=== PATIENT | female | born 1975 | race Caucasian/White ===

== ENCOUNTER 2016-12-16 15:11 | Emergency (ER) | payer OTHER ==
[2016-12-16 15:15] VITALS: BP 119/72; PULSE 68; RESP 20; TEMP 98.2
--- NOTE | 2016-12-16 15:30 | ED ---
General Adult HPI - General Chief complaint: Headache Stated complaint: Cough/Headache Time Seen by Provider: 12/16/16 15:18 Source: patient Mode of arrival: ambulatory Limitations: no limitations - History of Present Illness Initial comments: This 41-year-old female presents with a complaint of coughing. She states that she's been coughing up greenish production for the last 4 days. She has had occasional shortness of breath but no chest pain. She's had some moderate nasal congestion as well. She does not utilize tobacco. She denies any fevers. She has tried some DayQuil, NyQuil, and vertex without any relief. She does complain of occasional headache which is worse with coughing. No other complaints or modifying factors. She denies any possibility of . - Related Data Previous Rx's Medication Instructions Recorded Naproxen [Naprosyn] 500 mg PO Q12HR #20 tab 09/18/15 Albuterol Sulfate [Proair Hfa] 1 - 2 puff INHALATION Q6HR PRN #1 12/16/16 inhaler Azithromycin [Zithromax Z-pack] 0 mg PO DIRECTED #6 tab 12/16/16 Allergies Allergy/AdvReac Type Severity Reaction Status Date / Time No Known Allergies Allergy Verified 12/16/16 15:15 Review of Systems ROS Statement: Those systems with pertinent positive or pertinent negative responses have been documented in the HPI. ROS Other: All systems not noted in ROS Statement are negative. Past Medical History Past Medical History: No Reported History History of Any Multi-Drug Resistant Organisms: None Reported Past Surgical History: Tubal Ligation Past Psychological History: No Psychological Hx Reported Smoking Status: Never smoker Past Alcohol Use History: None Reported Past Drug Use History: None Reported General Exam - General Exam Comments Initial Comments: GENERAL: The patient is well nourished and well hydrated. VITAL SIGNS: Heart rate, blood pressure, respiratory rate reviewed as recorded in nurse's notes. EYES: Pupils are round and reactive. Extraocular movements are intact. No conjunctival / lid redness or swelling. ENT: No external evidence of injury, swelling, or ecchymosis. Airway is patent. Throat is clear. NECK: Nontender. No swelling or evidence of injury. No subcutaneous emphysema. Trachea is midline. No thyroid mass. HEART: Regular rate and rhythm. Good peripheral pulses. LUNGS/CHEST: Breath sounds clear and equal bilaterally. No rales, rhonchi, or wheezes. No ecchymosis, subcutaneous emphysema, or tenderness. ABDOMEN: Abdomen soft without tenderness. No palpable masses or organomegaly. No peritoneal signs. No abdominal wall swelling or ecchymosis. EXTREMITIES: No extremity tenderness. Normal muscle tone and function. No thoracolumbar tenderness. NEUROLOGIC: Sensation is grossly intact. Cranial nerve exam reveals face is symmetrical, tongue is midline, speech is clear. SKIN: No abrasions or ecchymosis is noted. No induration or masses noted. PSYCHIATRIC: Alert and oriented. Appropriate behavior and judgment. Limitations: no limitations Course Vital Signs 12/16/16 15:13 Temperature 98.2 F Pulse Rate 68 Respiratory 20 Rate Blood Pressure 119/72 O2 Sat by Pulse 99 Oximetry Medical Decision Making - Medical Decision Making The patient was seen and examined. It is felt as though her symptom complex is consistent with bronchitis. She also has a history of asthma. She'll be treated with some antibiotics as well as an inhaler. She understands and agrees with findings disposition and leaves in no distress. Disposition Clinical Impression: Bronchitis Disposition: HOME SELF-CARE Condition: Good Instructions: Acute Bronchitis (ED) Additional Instructions: Please use Tylenol and/or Motrin if needed for any pain or fever. Prescriptions: Albuterol Sulfate [Proair Hfa] 1 - 2 puff INHALATION Q6HR PRN #1 inhaler PRN Reason: Shortness Of Breath Or Wheezing Azithromycin [Zithromax Z-pack] 0 mg PO DIRECTED #6 tab Referrals: Betzy Viveros MD [Primary Care Provider] - 1-2 days Time of Disposition: 15:29
== END 2016-12-16 15:37 | disposition home or self-care (01) ==
LOC: EC 15:11
DX: J40 Bronchitis, not specified as acute or chronic (principal)
CPT/HCPCS: 99283

== ENCOUNTER 2017-09-23 22:56 | Emergency (ER) | payer OTHER ==
[2017-09-23 23:09] VITALS: RESP 18
[2017-09-23] MEDS ORDERED: diphenhydrAMINE 50 MG/ML 1 ML VIAL IVP STA (23:39)
[2017-09-23] MEDS ORDERED: SODIUM CHLORIDE 0.9% 1,000 ML IV ONE (23:39)
[2017-09-23] MEDS ORDERED: METOCLOPRAMIDE 5 MG/ML 2 ML VIAL IVP STA (23:39)
[2017-09-23] MEDS ORDERED: KETOROLAC 30 MG/ML 1 ML VIAL IVP STA (23:39)
--- NOTE | 2017-09-23 23:41 | ED ---
Headache HPI - General Chief Complaint: Headache Stated Complaint: Headache Time Seen by Provider: 09/23/17 23:15 Mode of arrival: ambulatory Limitations: no limitations - History of Present Illness MD Complaint: headache Onset/Timin -: days(s) Onset Description: gradual Location: right, left, temporal Severity scale (1-10): 10 Quality: aching, throbbing Consistency: constant Improves With: nothing Worsens With: none Treatments Prior to Arrival: none - Related Data Home Medications Medication Instructions Recorded Confirmed Ibuprofen 800 mg PO Q6H PRN 09/23/17 09/23/17 Previous Rx's Medication Instructions Recorded Ibuprofen [Motrin] 600 mg PO Q8HR PRN #20 tab 09/24/17 Metoclopramide [Reglan] 10 mg PO TID PRN #12 tab 09/24/17 Allergies Allergy/AdvReac Type Severity Reaction Status Date / Time No Known Allergies Allergy Verified 09/23/17 23:16 Review of Systems ROS Statement: Those systems with pertinent positive or pertinent negative responses have been documented in the HPI. ROS Other: All systems not noted in ROS Statement are negative. Past Medical History Past Medical History: No Reported History History of Any Multi-Drug Resistant Organisms: None Reported Past Surgical History: Tubal Ligation Past Psychological History: No Psychological Hx Reported Smoking Status: Never smoker Past Alcohol Use History: None Reported Past Drug Use History: None Reported General Exam Limitations: no limitations General appearance: alert, in no apparent distress Head exam: Present: atraumatic, normocephalic Eye exam: Present: normal appearance, PERRL, EOMI. Absent: scleral icterus, conjunctival injection, nystagmus ENT exam: Present: mucous membranes dry, TM's normal bilaterally, normal external ear exam Neck exam: Present: normal inspection, full ROM. Absent: tenderness, meningismus Extremities exam: Present: normal inspection, normal capillary refill. Absent: pedal edema, calf tenderness Back exam: Present: normal inspection, full ROM. Absent: vertebral tenderness Neurological exam: Present: alert, oriented X3, CN II-XII intact. Absent: motor sensory deficit Skin exam: Present: warm, dry, intact, normal color. Absent: rash Course Vital Signs 09/23/17 23:05 Temperature 98.4 F Pulse Rate 53 L Respiratory 18 Rate Blood Pressure 134/91 O2 Sat by Pulse 100 Oximetry Disposition Clinical Impression: Headache Disposition: HOME SELF-CARE Condition: Good Instructions: Acute Headache (ED) Prescriptions: Ibuprofen [Motrin] 600 mg PO Q8HR PRN #20 tab PRN Reason: Pain Metoclopramide [Reglan] 10 mg PO TID PRN #12 tab PRN Reason: Nausea Is patient prescribed a controlled substance at d/c from ED?: No Referrals: Tiburcio Spencer MD [Primary Care Provider] - 1-2 days
--- NOTE | 2017-09-24 00:08 | CT ---
EXAMINATION TYPE: CT brain wo con DATE OF EXAM: 09/24/2017 COMPARISON: NONE HISTORY: headache intermittent for [address] DLP: 1121 mGycm. Automated Exposure Control for Dose Reduction was Utilized. TECHNIQUE: CT scan of the head is performed without contrast. FINDINGS: Ventricles and sulci appear normal. There is no mass effect nor midline shift. There is n o sign of intracranial hemorrhage. Calvarium appears normal. Impression normal head CT scan.
[2017-09-24 01:35] VITALS: BP 127/69; PULSE 65; TEMP 97.3
== END 2017-09-24 01:35 | disposition home or self-care (01) ==
LOC: EC 22:56
DX: R51 Headache (principal)
CPT/HCPCS: 99284; 96374; 96375 ×2; 96361; 70450; J1200; J2765; J1885

== ENCOUNTER 2018-07-01 12:57 | Emergency (ER) | payer OTHER ==
[2018-07-01 13:03] VITALS: TEMP 98.3
[2018-07-01] MEDS ORDERED: AZITHROMYCIN 500 MG TAB PO STA (13:24)
[2018-07-01] MEDS ORDERED: cefTRIAXone 250 MG VIAL IM STA (13:24)
[2018-07-01] MEDS ORDERED: IBUPROFEN 600 MG TAB PO STA (13:24)
[2018-07-01] MEDS ORDERED: CYCLOBENZAPRINE 10 MG TAB PO STA (13:24)
[2018-07-01 13:48] LABS: Appearance,Urine Clear (Clear); Bilirubin,Urine Negative (Negative); Blood,Urine Negative (Negative); Color,Urine Light Yellow; Glucose,Urine (UA) Negative (Negative); Ketones,Urine Negative (Negative); Leukocyte Esterase,Urine Negative (Negative); Nitrite,Urine Negative (Negative); PH, Urine 6.5 (5.0-8.0); Protein,Urine Negative (Negative); Specific Gravity,Urine 1.003 (1.001-1.035); Urobilinogen,Urine <2.0 mg/dL (<2.0)
[2018-07-01 14:05] VITALS: RESP 16
--- NOTE | 2018-07-01 14:43 | ED ---
General Adult HPI - General Chief complaint: Abdominal Pain Stated complaint: vaginal discharge Time Seen by Provider: 07/01/18 13:07 Source: patient, RN notes reviewed Mode of arrival: ambulatory Limitations: no limitations - History of Present Illness Initial comments: 42-year-old female without any significant past medical history besides tubal ligation presents to the emergency department for multiple complaints. Patient complains of right-sided back spasms. Patient states this started a few days ago. Patient states she recently started working 80 hours at work per week and has been lifting heavy crates of pop. She thinks this is related. She denies any bladder or bowel changes, saddle anesthesia. She denies any weakness in the legs or pain radiating into the legs. She denies any midline tenderness. Patient states she is more concerned about vaginal discharge. She states this has been ongoing for about 2 weeks. She states it is clear and does not have an odor. Patient does admit to sexual activity with new partners. She is concerned about sexually transmitted diseases. She denies any pelvic pain whatsoever.Patient has no other complaints at this time including shortness of breath, chest pain, abdominal pain, nausea or vomiting, headache, or visual changes. - Related Data Home Medications Medication Instructions Recorded Confirmed Acetaminophen Tab [Tylenol Tab] 650 mg PO Q4H PRN 07/01/18 07/01/18 Previous Rx's Medication Instructions Recorded Cyclobenzaprine [Flexeril] 5 mg PO TID #12 tablet 07/01/18 Doxycycline [Vibramycin] 100 mg PO BID 14 Days capsule 07/01/18 Ibuprofen [Motrin] 600 mg PO Q8HR PRN #20 tab 07/01/18 Allergies Allergy/AdvReac Type Severity Reaction Status Date / Time No Known Allergies Allergy Verified 07/01/18 13:28 Review of Systems ROS Statement: Those systems with pertinent positive or pertinent negative responses have been documented in the HPI. ROS Other: All systems not noted in ROS Statement are negative. Past Medical History Past Medical History: No Reported History History of Any Multi-Drug Resistant Organisms: None Reported Past Surgical History: Tubal Ligation Past Psychological History: No Psychological Hx Reported Smoking Status: Never smoker Past Alcohol Use History: None Reported Past Drug Use History: None Reported General Exam Limitations: no limitations General appearance: alert, in no apparent distress Head exam: Present: atraumatic, normocephalic, normal inspection Eye exam: Present: normal appearance, PERRL, EOMI. Absent: scleral icterus, conjunctival injection, periorbital swelling ENT exam: Present: normal exam, mucous membranes moist Neck exam: Present: normal inspection, full ROM. Absent: tenderness, meningismus, lymphadenopathy Respiratory exam: Present: normal lung sounds bilaterally. Absent: respiratory distress, wheezes, rales, rhonchi, stridor Cardiovascular Exam: Present: regular rate, normal rhythm, normal heart sounds. Absent: systolic murmur, diastolic murmur, rubs, gallop, clicks GI/Abdominal exam: Present: soft, normal bowel sounds. Absent: distended, tenderness, guarding, rebound, rigid External exam: Present: normal external exam. Absent: erythema, swelling, lesions, lacerations, ecchymosis Speculum exam: Present: normal speculum exam. Absent: erythema, vaginal discharge (No significant vaginal discharge noted), cervical discharge, vaginal bleeding, foreign body By manual exam: Present: normal by manual exam. Absent: cervical motion tenderness, adnexal tenderness, adnexal mass, uterine enlargement, uterine tenderness Back exam: Present: paraspinal tenderness (Right-sided paraspinal tenderness. N o other abnormalities noted.). Absent: vertebral tenderness Neurological exam: Present: alert, oriented X3, CN II-XII intact Psychiatric exam: Present: normal affect, normal mood Course Vital Signs 07/01/18 07/01/18 13:01 14:05 Temperature 98.3 F Pulse Rate 79 75 Respiratory 18 16 Rate Blood Pressure 121/80 125/88 O2 Sat by Pulse 100 98 Oximetry Medical Decision Making - Medical Decision Making 42-year-old female presents to the emergency determine for chief complaint of vaginal discharge. Patient states this has been ongoing for the past 2 weeks. She is concerned for sexually transmitted diseases and does have new sexual partners. Patient denies any dysuria. Denies any pelvic pain whatsoever. Pelvic exam was normal. Discussed empiric treatment which patient would like to have. Patient will also be given doxycycline. Educated on to get on this however patient already has a tubal ligation. Patient also complaining of right-sided back spasms after heavy lifting at work. Patient given Motrin and Flexeril, feeling much better. Patient will follow up with primary care in 1-2 days. She will return here she has any worsening symptoms. - Lab Data Lab Results 07/01/18 07/01/18 07/01/18 Range/Units 13:32 13:32 13:55 Urine Color Light Yellow Urine Appearance Clear (Clear) Urine pH 6.5 (5.0-8.0) Ur Specific Corder 1.003 (1.001-1.035) Urine Protein Negative (Negative) Urine Glucose (UA) Negative (Negative) Urine Ketones Negative (Negative) Urine Blood Negative (Negative) Urine Nitrite Negative (Negative) Urine Bilirubin Negative (Negative) Urine Urobilinogen <2.0 (<2.0) mg/dL Ur Leukocyte Esterase Negative (Negative) Urine HCG, Qual Not Detected (Not Detectd) Trichomonas Ag (Rapid) Negative (Negative) Disposition Clinical Impression: Vaginal discharge Disposition: HOME SELF-CARE Condition: Good Instructions (If sedation given, give patient instructions): Vaginal Discharge (ED), Low Back Strain (ED) Additional Instructions: Please follow up with primary care in 1-2 days. Take antibiotic as directed. Please take Motrin and Flexeril for back pain. Do not drive or operate machinery while taking Flexeril. Return to the emergency department if you have any worsening symptoms. Prescriptions: Cyclobenzaprine [Flexeril] 5 mg PO TID #12 tablet Ibuprofen [Motrin] 600 mg PO Q8HR PRN #20 tab PRN Reason: Pain Doxycycline [Vibramycin] 100 mg PO BID 14 Days capsule Is patient prescribed a controlled substance at d/c from ED?: No Referrals: Tiburcio Spencer MD [Primary Care Provider] - 1-2 days Time of Disposition: 14:41
[2018-07-01 15:03] VITALS: BP 126/80; PULSE 72
[2018-07-02 13:38] LABS: C. trachomatis,PCR Negative (Neg,Equiv); Chlamydia trachomatis Source Vagina; N. gonorrhoeae,PCR Negative (Neg,Equiv); Neisseria Source Vagina
== END 2018-07-01 15:03 | disposition home or self-care (01) ==
LOC: EC 12:57
DX: N89.8 Other specified noninflammatory disorders of vagina (principal); R25.2 Cramp and spasm; R10.9 Unspecified abdominal pain; Z98.51 Tubal ligation status
CPT/HCPCS: 81003; 81025; 87808; 87491; 87591; 99284; 96372; J0696

== ENCOUNTER 2018-09-01 16:04 | Emergency (ER) | payer OTHER ==
[2018-09-01] MEDS ORDERED: IBUPROFEN 600 MG TAB PO STA (18:12)
[2018-09-01] MEDS ORDERED: guaiFENesin-DM 600/30MG 1 EACH TAB.ER.12H PO STA (18:12)
[2018-09-01] MEDS ORDERED: ACETAMINOPHEN TAB 500 MG TAB PO STA (18:12)
--- NOTE | 2018-09-01 18:17 | ED ---
URI HPI - General Chief Complaint: Upper Respiratory Infection Stated Complaint: Congestion Time Seen by Provider: 09/01/18 17:57 Source: patient Mode of arrival: ambulatory Limitations: no limitations - History of Present Illness Initial Comments: 42-year-old female patient presents to the emergency department today for a 2 day history of cough, nasal congestion, sore throat, and headache. Patient states her children are sick with similar symptoms. States that she is coughing up clear to yellow sputum. Denies any known fever. States she did take DayQuil for her symptoms which did give mild relief. She denies any shortness of breath or wheezing. Denies any nausea, vomiting, or diarrhea. Denies any history of smoking. Denies any chronic medical conditions. Patient denies any recent rash, chest pain, abdominal pain, back pain, numbness, tingling, dizziness, weakness, hematuria, dysuria, urinary urgency, urinary frequency, headache, vis ual changes, or any other complaints. - Related Data Previous Rx's Medication Instructions Recorded guaiFENesin-DM 600/30MG [Mucinex 1 each PO Q12HR #10 tab.er.12h 09/01/18 Dm] Allergies Allergy/AdvReac Type Severity Reaction Status Date / Time No Known Allergies Allergy Verified 09/01/18 18:46 Review of Systems ROS Statement: Those systems with pertinent positive or pertinent negative responses have been documented in the HPI. ROS Other: All systems not noted in ROS Statement are negative. Past Medical History Past Medical History: No Reported History History of Any Multi-Drug Resistant Organisms: None Reported Past Surgical History: Tubal Ligation Past Psychological History: No Psychological Hx Reported Smoking Status: Never smoker Past Alcohol Use History: None Reported Past Drug Use History: None Reported General Exam Limitations: no limitations General appearance: alert, in no apparent distress, other (Physical well- developed, well-nourished adult female patient in no acute distress. Vital signs upon presentation are temperature 98.5F, pulse 63, respirations 16, blood pressure 120/80, pulse ox 100% on room air.) Eye exam: Present: normal appearance, PERRL, EOMI. Absent: scleral icterus, conjunctival injection, periorbital swelling ENT exam: Present: mucous membranes moist, TM's normal bilaterally. Absent: n ormal exam, normal oropharynx (Pharyngeal erythema) Respiratory exam: Present: normal lung sounds bilaterally. Absent: respiratory distress, wheezes, rales, rhonchi, stridor Cardiovascular Exam: Present: regular rate, normal rhythm, normal heart sounds. Absent: systolic murmur, diastolic murmur, rubs, gallop, clicks GI/Abdominal exam: Present: soft, normal bowel sounds. Absent: distended, tenderness, guarding, rebound, rigid Neurological exam: Present: alert, oriented X3, CN II-XII intact Psychiatric exam: Present: normal affect, normal mood Skin exam: Present: warm, dry, intact, normal color. Absent: rash Course Vital Signs 09/01/18 17:22 Temperature 98.5 F Pulse Rate 63 Respiratory 16 Rate Blood Pressure 120/80 O2 Sat by Pulse 100 Oximetry Medical Decision Making - Medical Decision Making 42-year-old female patient presents to the emergency department today for evaluation of cough, nasal congestion, body aches, and headache. Physical examination reveals clear equal lung sounds. Pharyngeal erythema. Chest x-ray showed no acute cardio pulmonary process. Patient symptoms are consistent with acute viral upper respiratory infection. She is instructed to rest, increase fluids, take Mucinex DM as directed. She is instructed to follow-up with her primary care physician for recheck in 1-2 days. Return parameters were discussed in detail. She verbalizes understanding and agrees with this plan. - Radiology Data Radiology results: report reviewed, image reviewed Two-view x-ray of the chest is obtained. Report was reviewed in its entirety. Impression by Dr. Hager shows normal chest with no change. Disposition Clinical Impression: Viral upper respiratory infection Disposition: HOME SELF-CARE Condition: Good Instructions (If sedation given, give patient instructions): Upper Respiratory Infection (ED) Additional Instructions: Rest. Increase fluids. Use over the counter decongestants and nasal sprays for symptom relief. Follow up with your primary care physician in 1-2 days for a recheck. Return here immediately for any new, worsening, or concerning symptoms. Prescriptions: guaiFENesin-DM 600/30MG [Mucinex Dm] 1 each PO Q12HR #10 tab.er.12h Is patient prescribed a controlled substance at d/c from ED?: No Referrals: Tiburcio Spencer MD [Primary Care Provider] - 1-2 days Time of Disposition: 18:45
--- NOTE | 2018-09-01 18:33 | XR ---
EXAMINATION TYPE: XR chest 2V DATE OF EXAM: 09/01/2018 COMPARISON: 09/18/2015 HISTORY: Cough TECHNIQUE: Frontal and lateral views of the chest are obtained. FINDINGS: Heart and mediastinum are normal. Lungs are clear. Diaphragm is normal. Bony thorax is int act. IMPRESSION: Normal chest. No change.
[2018-09-01 19:32] VITALS: BP 116/82; PULSE 64; RESP 14; TEMP 97.6
== END 2018-09-01 19:48 | disposition home or self-care (01) ==
LOC: EC 16:04
DX: J06.9 Acute upper respiratory infection, unspecified (principal)
CPT/HCPCS: 71046; 99283

== ENCOUNTER 2019-04-16 21:23 | Emergency (ER) | payer OTHER ==
[2019-04-16 21:31] VITALS: BP 117/79; PULSE 82; RESP 16; TEMP 98.5
[2019-04-16] MEDS ORDERED: diphenhydrAMINE 25 MG CAP PO STA (21:40)
[2019-04-16] MEDS ORDERED: FAMOTIDINE 20 MG TAB PO STA (21:40)
[2019-04-16] MEDS ORDERED: methylPREDNISolone SOD SUCCI 125 MG/2 ML VIAL IM ONE (21:40)
--- NOTE | 2019-04-16 21:46 | ED ---
Skin/Abscess/FB HPI - General Chief complaint: Skin/Abscess/Foreign Body Stated complaint: Rash Time Seen by Provider: 04/16/19 21:32 Source: patient Mode of arrival: ambulatory Limitations: no limitations - History of Present Illness Initial comments: 43yo female presenting for possible insect bites/rash. States she has itchy bites all over her body chest abdomen UE b/l. Denies fever, stats she had home checked for bed bugs, states there are none. Patient taking benadryl at home. Patient denies any other associated symptoms or confluent redness. Patient states she did consider scabies, areas are itchy at night. Remainign ROS (-). On arrival patient appears well, no distress. Afebrile. - Related Data Previous Rx's Medication Instructions Recorded guaiFENesin-DM 600/30MG [Mucinex 1 each PO Q12HR #10 tab.er.12h 09/01/18 Dm] Permethrin 5% Cream [Elimite] 1 applic TOPICAL ONCE 1 Days #1 04/16/19 tube Allergies Allergy/AdvReac Type Severity Reaction Status Date / Time tomato Allergy Rash/Hives Verified 04/16/19 21:31 Review of Systems ROS Statement: Those systems with pertinent positive or pertinent negative responses have been documented in the HPI. ROS Other: All systems not noted in ROS Statement are negative. Past Medical History Past Medical History: No Reported History History of Any Multi-Drug Resistant Organisms: None Reported Past Surgical History: Tubal Ligation Past Psychological History: No Psychological Hx Reported Smoking Status: Never smoker Past Alcohol Use History: None Reported Past Drug Use History: None Reported General Exam - General Exam Comments Initial Comments: General: The patient is awake and alert, in no distress, and does not appear acutely ill. Eye: =3 mm pupils are equal, round and reactive to light, extra-ocular movements are intact. No nystagmus. There is normal conjunctiva bilaterally. No signs of icterus. Ears, nose, mouth and throat: There are moist mucous membranes and no oral lesions. Neck: The neck is supple, there is no tenderness or JVD. Cardiovascular: There is a regular rate and rhythm. No murmur, rub or gallop is appreciated. Respiratory: Lungs are clear to auscultation, respirations are non-labored, breath sounds are equal. No wheezes, stridor, rales, or rhonchi. Musculoskeletal: Normal ROM, no tenderness. Strength 5/5. Sensation intact. Pulses equal bilaterally 2+. Neurological: A&O x 3. CN II-XII intact, There are no obvious motor or sensory deficits. Coordination appears grossly intact. Speech is normal. Skin: Skin is warm and dry. Small random breaks in skin slightly red, some excoriated some in linear pattern, no finger or feet involvement. no confluent areas, random distribution present on chest, abdomen ue b/l. Psychiatric: Cooperative, appropriate mood & affect, normal judgment. Limitations: no limitations Course Vital Signs 04/16/19 21:29 Temperature 98.5 F Pulse Rate 82 Respiratory 16 Rate Blood Pressure 117/79 O2 Sat by Pulse 96 Oximetry Medical Decision Making - Medical Decision Making rash consistent with some type of infestation with local excoriation. will attempt scabies treatment, given steroids, pepcid, benadryl for itch relief. does not appears consistent with urticaria. nor viral [place] no other associated symptoms. Patient case discussed with Dr. Ivey and she will be discharged with permetherin 5%,PCP and dermatology f/u> patient agreeable. Disposition Clinical Impression: Rash Disposition: HOME SELF-CARE Condition: Good Instructions (If sedation given, give patient instructions): Scabies (ED), Acute Rash (ED) Additional Instructions: Please use medication as discussed. Please follow-up with family doctor in the next 2 days, follow-up with dermatology. Please return to emergency room if the symptoms increase or worsen or for any other concerns. Prescriptions: Permethrin 5% Cream [Elimite] 1 applic TOPICAL ONCE 1 Days #1 tube Is patient prescribed a controlled substance at d/c from ED?: No Referrals: Tiburcio Spencer MD [Primary Care Provider] - 1-2 days Time of Disposition: 21:46
== END 2019-04-16 22:10 | disposition home or self-care (01) ==
LOC: EC 21:23
DX: R21 Rash and other nonspecific skin eruption (principal); L29.9 Pruritus, unspecified; Z91.018 Allergy to other foods
CPT/HCPCS: 99282; 96372; J2930

== ENCOUNTER 2019-06-25 16:26 | Emergency (ER) | payer OTHER ==
[2019-06-25 16:35] VITALS: TEMP 98.8
[2019-06-25] MEDS ORDERED: SODIUM CHLORIDE 0.9% 500 ML 500 ML IV STA (17:05)
[2019-06-25] MEDS ORDERED: SILVER NITRATE APPLICATOR 1 EACH STICK..EA. TOPICAL STA (17:06)
[2019-06-25 17:29] VITALS: RESP 16
[2019-06-25 17:43] LABS: Basophils % (A) 0 %; Eosinophils # (A) 0.1 k/uL (0-0.7); Eosinophils % (A) 1 %; HCT 39.9 % (34.0-46.0); HGB 13.1 gm/dL (11.4-16.0); Lymphocytes # (A) 1.9 k/uL (1.0-4.8); Lymphocytes % (A) 18 %; MCH 29.6 pg (25.0-35.0); MCHC 32.8 g/dL (31.0-37.0); MCV 90.1 fL (80.0-100.0); Mean Platelet Volume 8.2; Monocytes # (A) 0.7 k/uL (0-1.0); Monocytes % (A) 6 %; Neutrophils # (A) 7.8 k/uL (1.3-7.7); Neutrophils % (A) 73 %; Platelet Count 189 k/uL (150-450); RBC 4.43 m/uL (3.80-5.40); RDW 13.3 % (11.5-15.5); WBC 10.7 k/uL (3.8-10.6)
[2019-06-25 17:52] LABS: Appearance,Urine Turbid (Clear); Bacteria,Urine Rare /hpf; Bilirubin,Urine Negative (Negative); Blood,Urine Moderate (Negative); Color,Urine Yellow; Glucose,Urine (UA) Negative (Negative); Ketones,Urine Negative (Negative); Leukocyte Esterase,Urine Large (Negative); Mucus,Urine Occasional /hpf; Nitrite,Urine Negative (Negative); PH, Urine 5.5 (5.0-8.0); Protein,Urine 1+ (Negative); RBC,Urine 54 /hpf (0-5); Specific Gravity,Urine 1.024 (1.001-1.035); Squamous Epithelial Cell,Urine 13 /hpf (0-4); WBC,Urine >182 /hpf (0-5)
[2019-06-25 17:58] LABS: ALT 15 U/L (4-34); AST 21 U/L (14-36); African American GFR (CKD) >90 (>60 ml/min/1.73 sqM); Albumin 3.7 g/dL (3.5-5.0); Alkaline Phosphatase 85 U/L (38-126); Anion Gap 4 mmol/L; Blood Urea Nitrogen 10 mg/dL (7-17); Calcium 10.2 mg/dL (8.4-10.2); Carbon Dioxide 26 mmol/L (22-30); Chloride 107 mmol/L (98-107); Glucose 87 mg/dL (74-99); Magnesium 2.4 mg/dL (1.6-2.3); Non-African American GFR(CKD) >90 (>60 ml/min/1.73 sqM); Phosphorus 2.9 mg/dL (2.5-4.5); Potassium 3.5 mmol/L (3.5-5.1); Sodium 137 mmol/L (137-145); Total Bilirubin 0.3 mg/dL (0.2-1.3); Total Protein 6.7 g/dL (6.3-8.2)
[2019-06-25 18:02] LABS: INR 0.9 (<1.2); Partial Thromboplastin Time 22.6 sec (22.0-30.0); Prothrombin Time 9.4 sec (9.0-12.0)
[2019-06-25] MEDS ORDERED: cefTRIAXone IN SWFI 1,000 MG/10 ML SYRINGE IVP STA (18:27)
--- NOTE | 2019-06-25 18:27 | ED ---
Female Urogenital HPI - General Chief complaint: ENT Stated complaint: Nose Bleed Time Seen by Provider: 06/25/19 16:42 Source: patient, RN notes reviewed, old records reviewed Mode of arrival: ambulatory Limitations: no limitations - History of Present Illness Initial comments: This is a 43-year-old female ABHINAV she has multiple complaints today. Patient complaining of initially episode of vaginal bleeding although it is about time for her normal menses but then developed 3 bloody noses today by place and time, were improved with holding pressure although returned, patient did feel lightheaded and dizzy during these events and has been having some vaginal bleeding as well. Denies any bleeding issue prior. No significant medical history takes no medications denying drug or alcohol abuse. Patient has no active nose bleeding currently, denying abdominal pain. Denies possibility of . MD Complaint: vaginal bleeding -: hour(s) Location: suprapubic Radiation: non-radiating Severity: moderate Severity scale (1-10): 4 Quality: other (no pain) Improves with: none Worsens with: none Patient : No Associated Symptoms: denies other symptoms - Related Data Sexually active: Yes Previous Rx's Medication Instructions Recorded guaiFENesin-DM 600/30MG [Mucinex 1 each PO Q12HR #10 tab.er.12h 09/01/18 Dm] Permethrin 5% Cream [Elimite] 1 applic TOPICAL ONCE 1 Days #1 04/16/19 tube Allergies Allergy/AdvReac Type Severity Reaction Status Date / Time tomato Allergy Rash/Hives Verified 06/25/19 16:29 Review of Systems ROS Statement: Those systems with pertinent positive or pertinent negative responses have been documented in the HPI. ROS Other: All systems not noted in ROS Statement are negative. Past Medical History Past Medical History: No Reported History History of Any Multi-Drug Resistant Organisms: None Reported Past Surgical History: Tubal Ligation Past Psychological History: No Psychological Hx Reported Smoking Status: Never smoker Past Alcohol Use History: None Reported Past Drug Use History: None Reported General Exam Limitations: no limitations General appearance: alert, in no apparent distress Head exam: Present: atraumatic, normocephalic, normal inspection Eye exam: Present: normal appearance, PERRL, EOMI. Absent: scleral icterus, conjunctival injection, periorbital swelling ENT exam: Present: normal exam, mucous membranes moist, other (Patient does have bleeding from right naris that appears to have stopped) Neck exam: Present: normal inspection. Absent: tenderness, meningismus, lymphadenopathy Respiratory exam: Present: normal lung sounds bilaterally. Absent: respiratory distress, wheezes, rales, rhonchi, stridor Cardiovascular Exam: Present: regular rate, normal rhythm, normal heart sounds. Absent: systolic murmur, diastolic murmur, rubs, gallop, clicks GI/Abdominal exam: Present: soft, normal bowel sounds. Absent: distended, tenderness, guarding, rebound, rigid Extremities exam: Present: normal inspection, full ROM, normal capillary refill. Absent: tenderness, pedal edema, joint swelling, calf tenderness Back exam: Present: normal inspection Neurological exam: Present: alert, oriented X3, CN II-XII intact Psychiatric exam: Present: normal affect, normal mood Skin exam: Present: warm, dry, intact, normal color. Absent: rash Course Vital Signs 06/25/19 06/25/19 16:29 17:27 Temperature 98.8 F Pulse Rate 93 83 Respiratory 18 16 Rate Blood Pressure 123/81 130/81 O2 Sat by Pulse 98 99 Oximetry - Reevaluation(s) Reevaluation #1: 06/25/19 18:25 Medical records reviewed Reevaluation #2: 06/25/19 18:25 Asymptomatic no symptoms of vaginal bleeding or nasal bleeding currently patient informed results Procedures - Procedures Initial comment: Right epistaxis Bleeding had stopped, cauterized with silver nitrate No complication Medical Decision Making - Medical Decision Making 43 female to the ED co R nare epistaxis, resolved, and vaginal bleeding labs VS are normal, VS stable, patient can be discharged home. - Lab Data Result diagrams: 06/25/19 17:20 06/25/19 17:20 Lab Results 06/25/19 06/25/19 06/25/19 Range/Units 17:20 17:20 17:20 WBC 10.7 H (3.8-10.6) k/uL RBC 4.43 (3.80-5.40) m/uL Hgb 13.1 (11.4-16.0) gm/dL Hct 39.9 (34.0-46.0) % MCV 90.1 (80.0-100.0) fL MCH 29.6 (25.0-35.0) pg MCHC 32.8 (31.0-37.0) g/dL RDW 13.3 (11.5-15.5) % Plt Count 189 (150-450) k/uL Neutrophils % 73 % Lymphocytes % 18 % Monocytes % 6 % Eosinophils % 1 % Basophils % 0 % Neutrophils # 7.8 H (1.3-7.7) k/uL Lymphocytes # 1.9 (1.0-4.8) k/uL Monocytes # 0.7 (0-1.0) k/uL Eosinophils # 0.1 (0-0.7) k/uL Basophils # 0.0 (0-0.2) k/uL PT 9.4 (9.0-12.0) sec INR 0.9 (<1.2) APTT 22.6 (22.0-30.0) sec Sodium (137-145) mmol/L Potassium (3.5-5.1) mmol/L Chloride (98-107) mmol/L Carbon Dioxide (22-30) mmol/L Anion Gap mmol/L BUN (7-17) mg/dL Creatinine (0.52-1.04) mg/dL Est GFR (CKD-EPI)AfAm (>60 ml/min/1.73 sqM) Est GFR (CKD-EPI)NonAf (>60 ml/min/1.73 sqM) Glucose (74-99) mg/dL Calcium (8.4-10.2) mg/dL Phosphorus (2.5-4.5) mg/dL Magnesium (1.6-2.3) mg/dL Total Bilirubin (0.2-1.3) mg/dL AST (14-36) U/L ALT (4-34) U/L Alkaline Phosphatase (38-126) U/L Total Protein (6.3-8.2) g/dL Albumin (3.5-5.0) g/dL Urine Color Yellow Urine Appearance Turbid H (Clear) Urine pH 5.5 (5.0-8.0) Ur Specific [place] 1.024 (1.001-1.035) Urine Protein 1+ H (Negative) Urine Glucose (UA) Negative (Negative) Urine Ketones Negative (Negative) Urine Blood Moderate H (Negative) Urine Nitrite Negative (Negative) Urine Bilirubin Negative (Negative) Urine Urobilinogen 2.0 (<2.0) mg/dL Ur Leukocyte Esterase Large H (Negative) Urine RBC 54 H (0-5) /hpf Urine WBC >182 H (0-5) /hpf Urine WBC Clumps Occasional H (None) /hpf Ur Squamous Epith Cells 13 H (0-4) /hpf Urine Bacteria Rare H (None) /hpf Urine Mucus Occasional H (None) /hpf Urine HCG, Qual (Not Detectd) 06/25/19 06/25/19 Range/Units 17:20 17:20 WBC (3.8-10.6) k/uL RBC (3.80-5.40) m/uL Hgb (11.4-16.0) gm/dL Hct (34.0-46.0) % MCV (80.0-100.0) fL MCH (25.0-35.0) pg MCHC (31.0-37.0) g/dL RDW (11.5-15.5) % Plt Count (150-450) k/uL Neutrophils % % Lymphocytes % % Monocytes % % Eosinophils % % Basophils % % Neutrophils # (1.3-7.7) k/uL Lymphocytes # (1.0-4.8) k/uL Monocytes # (0-1.0) k/uL Eosinophils # (0-0.7) k/uL Basophils # (0-0.2) k/uL PT (9.0-12.0) sec INR (<1.2) APTT (22.0-30.0) sec Sodium 137 (137-145) mmol/L Potassium 3.5 (3.5-5.1) mmol/L Chloride 107 (98-107) mmol/L Carbon Dioxide 26 (22-30) mmol/L Anion Gap 4 mmol/L BUN 10 (7-17) mg/dL Creatinine 0.73 (0.52-1.04) mg/dL Est GFR (CKD-EPI)AfAm >90 (>60 ml/min/1.73 sqM) Est GFR (CKD-EPI)NonAf >90 (>60 ml/min/1.73 sqM) Glucose 87 (74-99) mg/dL Calcium 10.2 (8.4-10.2) mg/dL Phosphorus 2.9 (2.5-4.5) mg/dL Magnesium 2.4 H (1.6-2.3) mg/dL Total Bilirubin 0.3 (0.2-1.3) mg/dL AST 21 (14-36) U/L ALT 15 (4-34) U/L Alkaline Phosphatase 85 (38-126) U/L Total Protein 6.7 (6.3-8.2) g/dL Albumin 3.7 (3.5-5.0) g/dL Urine Color Urine Appearance (Clear) Urine pH (5.0-8.0) Ur Specific [place] (1.001-1.035) Urine Protein (Negative) Urine Glucose (UA) (Negative) Urine Ketones (Negative) Urine Blood (Negative) Urine Nitrite (Negative) Urine Bilirubin (Negative) Urine Urobilinogen (<2.0) mg/dL Ur Leukocyte Esterase (Negative) Urine RBC (0-5) /hpf Urine WBC (0-5) /hpf Urine WBC Clumps (None) /hpf Ur Squamous Epith Cells (0-4) /hpf Urine Bacteria (None) /hpf Urine Mucus (None) /hpf Urine HCG, Qual Not Detected (Not Detectd) Disposition Clinical Impression: Right-sided epistaxis, DUB (dysfunctional uterine bleeding) Disposition: HOME SELF-CARE Condition: Good Instructions (If sedation given, give patient instructions): Nosebleed (ED), Dysfunctional Uterine Bleeding (ED) Is patient prescribed a controlled substance at d/c from ED?: No Referrals: Betzy Viveros MD [Primary Care Provider] - 1-2 days
[2019-06-25 18:46] VITALS: BP 121/72; PULSE 70
== END 2019-06-25 18:46 | disposition home or self-care (01) ==
LOC: EC 16:26
DX: R04.0 Epistaxis (principal); N93.8 Other specified abnormal uterine and vaginal bleeding; Z91.018 Allergy to other foods
CPT/HCPCS: 36415; 80053; 83735; 84100; 85025; 85610; 85730; 81001; 81025; 87086; 99284; 30901; 96360; J0696